=== PATIENT | male | born 1960 | race Caucasian/White ===

== ENCOUNTER → 2021-09-02 | Outpatient (CLI) | payer MEDICARE, OTHER ==
[~2021-09-02] MED LIST: ALLO100T PO; ASPI-886 PO; ATOR40TA59 PO; CHOL100013 PO; DILT180C29 PO; DOCU-109 PO; FENO134C PO; FOLI0.8C PO; GABA-585 PO; MELO15TA23 PO; METF10007 PO; METH-562 PO; OMEP20CA16 PO; OXYC1TAB15 PO; PROP20TA PO; SERT50TA PO; TAMS0.4C97 PO; VENL150C PO
--- NOTE | 2021-09-02 10:30 | EKG ---
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
[2021-09-02 10:41] LABS: BASO # 0.1 x10^3/uL (0.0-0.2); BASO % 1 % (0-3); EOS # 0.4 x10^3/uL (0.0-0.7); EOS % 4 % (0-3); HEMATOCRIT 48.5 % (39.0-53.0); HEMOGLOBIN 16.6 g/dL (13.0-17.5); LYMPH # 1.3 x10^3/uL (1.0-4.8); LYMPH % 14 % (24-48); MEAN CORPUSCULAR HEMOGLOBIN 29 pg (25-35); MEAN CORPUSCULAR HGB CONC 34 g/dL (31-37); MEAN CORPUSCULAR VOLUME 85 fL (79-100); MONO # 0.6 x10^3/uL (0.0-1.1); MONO % 7 % (0-9); NEUT # 7.3 x10^3/uL (1.8-7.7); NEUT % 74 % (31-73); PLATELET COUNT 436 x10^3/uL (140-400); RED BLOOD COUNT 5.69 x10^6/uL (4.30-5.70); RED CELL DISTRIBUTION WIDTH 13.5 % (11.5-14.5); WHITE BLOOD COUNT 9.8 x10^3/uL (4.0-11.0)
[2021-09-02 10:46] LABS: PROTHROMBIN TIME PATIENT 12.8 SEC (11.7-14.0)
[2021-09-02 10:51] LABS: ALBUMIN 4.2 g/dL (3.4-5.0); CALCIUM 9.6 mg/dL (8.5-10.1); CREATININE 1.1 mg/dL (0.7-1.3); GFR 68.3; POTASSIUM 4.6 mmol/L (3.5-5.1); TOTAL BILIRUBIN 0.5 mg/dL (0.2-1.0); TOTAL PROTEIN 8.3 g/dL (6.4-8.2)
--- NOTE | 2021-09-02 10:53 | HP ---
DATE OF SERVICE: 09/02/2021 ADMIT DATE: 09/04/2021 PREOP HISTORY AND PHYSICAL HISTORY OF PRESENT ILLNESS: The patient is a pleasant 61-year-old man who is having difficulty with low back pain and pain that radiates to his left buttock, posterolateral thigh and leg. The problem is slowly worsening. He says his legs feel weak with standing. He rates his pain 8-9/10. Standing and walking increases pain. Sitting helps. He had physical therapy in 2020. He underwent epidural steroid injections recently, which he said helped him for about 6 weeks. CURRENT MEDICATIONS: Meloxicam, tamsulosin, vitamin D, metformin, diltiazem, folic acid, allopurinol, vitamin D. PAST MEDICAL HISTORY: Arthritis, gout, headaches, hypertension, kidney stones. PAST SURGICAL HISTORY: Right knee replacement, right shoulder surgery. FAMILY HISTORY: Cancer. SOCIAL HISTORY: Retired, , does not smoke, does not drink alcohol. ALLERGIES: No known drug allergies. REVIEW OF SYSTEMS: A 12-point review of systems was performed and is noncontributory except that mentioned above. PHYSICAL EXAMINATION: GENERAL: Alert, pleasant, in no acute distress. HEENT: Head is normocephalic, atraumatic. SKIN: Warm and dry, [id number] tenderness of the lower lumbar spine with palpation. MUSCULOSKELETAL: Lumbar spine range of motion is restricted. Lumbar paraspinal muscle bulk is normal. There is normal range of motion of the lower extremities. EXTREMITIES: No clubbing, cyanosis or edema. NEUROLOGIC: Alert and oriented x 3. Strength is 5/5 in the lower extremities bilaterally. Sensory is intact in the lower extremities bilaterally. Reflexes were symmetric in the lower extremities bilaterally except the right knee, straight leg raising was positive on the left side and negative on the right side. Normal gait. IMAGING: I reviewed his lumbar MRI scan. On that study at L4-L5, there is a grade I anterolisthesis along with a herniated disk on the left with a superiorly extruded disk fragment. There is contact with the left L5 nerve root. I also reviewed flexion/extension films in which there is an increase in the anterolisthesis of L4 on L5 from 4 mm to 7 mm in flexion. ASSESSMENT AND PLAN: The patient has a disk herniation at L4-L5 along with a spondylolisthesis and motion at that level. To deal with this problem would require microdiskectomy plus instrumented fusion. I spoke with the patient and his about the rationale for this. I spoke with him about placing pedicle screws, anterior fusion and posterior fusion as well as diskectomy and decompression and the risks involved and the steps. They understand and would like to proceed. We will make the arrangements. HUONG DR: Sophia TID: [id number]
[2021-09-04 01:12] LABS: HEMOGLOBIN A1C 7.7 % (4.8-5.6)
== END ==
LOC: SURGPAT 09:50
PROVIDERS: ATTEND Neurological Surgery
DX: Z01.818 Encounter for other preprocedural examination (principal); M48.062 Spinal stenosis, lumbar region with neurogenic claudication; M43.16 Spondylolisthesis, lumbar region; Z79.899 Other long term (current) drug therapy
CPT/HCPCS: 36415; 80053; 83036; 85025; 85610; 85730; 87641; 93005